=== PATIENT | male | born 1950 | race Caucasian/White ===

== ENCOUNTER 2016-10-23 08:10 | Outpatient (RCR) | payer MEDICARE, OTHER | END 2016-10-29 | LOC: M CR 08:10 | PROVIDERS: ATTEND Physician Assistant | DX: Z51.89 Encounter for other specified aftercare (principal); I25.10 Atherosclerotic heart disease of native coronary artery without angina pectoris; I25.2 Old myocardial infarction ==

== ENCOUNTER 2016-11-20 12:49 | Outpatient (RCR) | payer MEDICARE, OTHER | END 2016-11-29 | LOC: M CR 12:49 | PROVIDERS: ATTEND Physician Assistant | DX: Z51.89 Encounter for other specified aftercare (principal); I25.10 Atherosclerotic heart disease of native coronary artery without angina pectoris ==